=== PATIENT | female | born 1950 | race Caucasian/White ===

== ENCOUNTER 2017-11-21 09:15 | Outpatient (RCR) | payer OTHER | END 2017-12-14 | disposition home or self-care (01) | LOC: PTY 09:15 | DX: M54.5 Low back pain (principal) | CPT/HCPCS: 97110; 97162; G0283 ==

== ENCOUNTER 2017-12-18 08:26 | Outpatient (RCR) | payer OTHER | END 2018-01-13 | disposition home or self-care (01) | LOC: PTY 08:26 | DX: M54.5 Low back pain (principal); M79.7 Fibromyalgia; M48.00 Spinal stenosis, site unspecified; F32.9 Major depressive disorder, single episode, unspecified; M81.0 Age-related osteoporosis without current pathological fracture | CPT/HCPCS: 97032; 97110; G0283 ==

== ENCOUNTER 2018-03-06 09:00 | Outpatient (RCR) | payer OTHER | END 2018-03-15 | disposition home or self-care (01) | LOC: PTY 09:00 | PROVIDERS: ATTEND Internal Medicine | DX: M54.5 Low back pain (principal) ==

== ENCOUNTER 2018-03-20 09:52 | Outpatient (RCR) | payer OTHER | END 2018-04-15 | disposition home or self-care (01) | LOC: PTY 09:52 | PROVIDERS: ATTEND Internal Medicine | DX: M54.5 Low back pain (principal) ==